=== PATIENT | male | born 1965 | race Caucasian/White ===

== ENCOUNTER 2022-11-08 21:06 | Emergency (ER) | payer OTHER ==
[~2022-11-08] VITALS: Ht 167.6 cm; Wt 86.1 kg
[2022-11-08 21:17] VITALS: BP 134/93
[2022-11-08] MEDS ORDERED: TAMSULOSIN HCL0.4 MG PO (21:28)
[2022-11-08] MEDS ORDERED: TORADOL PO ×2 (21:28→22:56)
[2022-11-08] MEDS ORDERED: EZALLOR SPRINKLE5 MG (21:29)
[2022-11-08] MEDS ORDERED: TOPROL XL25 M1 PO (21:29)
[2022-11-08 21:53] LABS: URINE BLOOD DIPSTICK LARGE (NEGATIVE); URINE COLOR BROWN; URINE GLUCOSE - DIPSTICK NEGATIVE (NEGATIVE); URINE KETONE TRACE mg/dL (NEGATIVE); URINE LEUK ESTERASE TRACE (NEGATIVE); URINE PH 6.5 (4.5-8.0); URINE PROTEIN - DIPSTICK 100 mg/dL (NEG-TRACE); URINE UROBILINOGEN - DIPSTICK 0.2 E.U./dL (0.2)
[2022-11-08 21:54] LABS: URINE BILIRUBIN - DIPSTICK SEE COMMNET (NEGATIVE); URINE NITRITE - DIPSTICK POSITIVE (Negative)
[2022-11-08 21:58] LABS: URINE RBC 50-100 RBC/hpf (0-5); URINE SQUAMOUS EPITHELIAL CELL FEW EPI/hpf (0-FEW)
[2022-11-08 21:59] LABS: URINE BACTERIA MODERATE hpf
[2022-11-08 21:59] LABS: BASO% 0.8 % (0-3); EOS% 2.4 % (0-8); HEMATOCRIT 41.3 % (39.0-50.0); HEMOGLOBIN 14.6 g/dl (14.0-18.0); LYMPH% 27.8 % (15-41); MEAN CELL VOLUME 85.9 fL CALC (80.0-100.0); MEAN CORPUSCULAR HGB 30.4 pG CALC (26.0-32.0); MEAN CORPUSCULAR HGB CONC 35.4 g/dL CAL (32.0-36.0); MONO% 10.6 % (2-13); NEUT# 3.86 thou/uL (1.82-7.42); NEUT% 58.4 % (42-76); RED BLOOD COUNT 4.81 mill/uL (4.70-6.10); RED CELL DISTRI WIDTH 12.3 % (11.5-15.5)
[2022-11-08 22:11] LABS: ALBUMIN 4.3 g/dL (3.2-5.0); ALKALINE PHOSPHATASE 63 u/l (38-126); ANION GAP 11 (6-22 (CALC)); BILIRUBIN, TOTAL 0.3 mg/dL (0.2-1.3); BUN 24 mg/dL (9-20); BUN/CREATININE RATIO 19 (12-20 (CALC)); CARBON DIOXIDE 25 mmol/l (22-30); CHLORIDE 105 mmol/l (95-108); CREATININE 1.3 mg/dL (0.7-1.3); GFR FOR AFR.AMER. > 60 ML/MIN (>=60 (CALC)); GFR OTHER RACES 57 ML/MIN (>=60 (CALC)); POTASSIUM 4.5 mmol/l (3.5-5.1); SGOT/AST 33 u/l (17-59); SODIUM 137 mmol/l (137-146); TOTAL PROTEIN 7.7 g/dL (6.3-8.2)
[2022-11-08] MEDS ORDERED: BACTRIM DS1 TAB PO (22:56)
[2022-11-08 23:20] VITALS: BP 132/71
== END 2022-11-08 23:40 | disposition home or self-care (01) | DRG 690 ==
LOC: ED 21:06
PROVIDERS: Family Medicine
DX: N13.6 Pyonephrosis (principal); I10 Essential (primary) hypertension; Z87.442 Personal history of urinary calculi